=== PATIENT | female | born 1960 | race Asian ===

== ENCOUNTER → 2022-05-09 10:28 | Outpatient (CLI) | payer OTHER, SELFPAY ==
--- NOTE | 2022-05-09 10:31 | DI.MRI.S_ITS ---
PROCEDURE: MR LOWER LEG LT WO CON COMPARISON: None. INDICATIONS: STRAIN OF LEFT CALF MUSCLE Technique: Multiplanar and multisequence MR images of left lower leg were obtained without IV contrast infusion. FINDINGS: Bones and joints: No marrow edema. No fracture or dislocation. Bony cortex is intact. No suspicious intraosseous lesion. Soft tissues: Trace amount of left knee joint effusion is noted. There is no gross intra-articular loose bodies. There is no discrete soft tissue mass or fluid collection. No lower leg muscle signal abnormality is seen. No evidence of muscle or tendon rupture. No intramuscular mass or fluid collection. IMPRESSION: 1. No lower leg muscle signal abnormality. No abnormal fluid collection. 2. No marrow edema. No fracture or dislocation. No MR evidence of tibial stress injuries. Dictated by: Jp Westfall M.D. on 05/11/2022 at 9:50 Approved by: Jp Westfall M.D. on 05/11/2022 at 10:01
== END ==
PROVIDERS: Referring Provider Orthopaedic Surgery Foot and Ankle Surgery; Visit Provider Orthopaedic Surgery Foot and Ankle Surgery
DX: S86.812A Strain of other muscle(s) and tendon(s) at lower leg level, left leg, initial encounter (principal); X58.XXXA Exposure to other specified factors, initial encounter
CPT/HCPCS: 73718

== ENCOUNTER 2023-07-15 19:37 | Emergency (ER) | payer OTHER, SELFPAY ==
[2023-07-15 19:52] VITALS: BP 138/68; PULSE 88; RESP 18; TEMP 36.1; O2SAT 99
--- NOTE | 2023-07-15 20:01 | DI.US.S_ITS ---
PROCEDURE: US PERIPH VENOUS LOW EXTREM LT INDICATIONS: cold painfull exremity after stepping wrong on a step TECHNIQUE: Real-time imaging, as well as color and pulse Doppler interrogation, were performed of the lower extremity deep veins from the inguinal ligament to the popliteal fossa, with documentation of the visualized calf veins. COMPARISON: None. FINDINGS: The common femoral, femoral, popliteal, and the visualized calf veins are normally compressible, and free of intraluminal thrombus. Color and pulse Doppler demonstrate normal phasic intraluminal flow. There is normal augmentation response to distal compression maneuver. IMPRESSION: No findings of lower extremity deep venous thrombosis. Approved by: Bernabe Lei M.D. on 07/15/2023 at 20:50
[2023-07-15 22:00] VITALS: PULSE 80
[2023-07-15 22:01] VITALS: PULSE 80
[2023-07-15 22:03] VITALS: PULSE 81
[2023-07-15 22:04] VITALS: PULSE 81
--- NOTE | 2023-07-15 22:04 | ED.LOWEXIN ---
HPI - Extremity Injury (Lower) General Chief Complaint: Extremity Injury, Lower Stated Complaint: left leg pain Time Seen by Provider: 07/15/23 21:59 Source: patient Mode of arrival: Ambulatory History of Present Illness HPI Narrative: 62-year-old female presents for calf pain. Patient states that she was taking out the trash and stepped backward. She felt a ?snap? and pain in her calf. Her palpated her lower extremity and reported that the limb felt cooler than the right lower extremity. They called the nursing line who referred them to the emergency department. Patient reports pain at the back of her left calf, is able to ambulate without difficulty. Denies numbness, weakness other complaints. Review of Systems Review of Systems Narrative: Negative except as noted above Patient History Social History Smoking Status: Never smoker Smoking Status: Never smoker alcohol intake frequency: holidays/special occasions only Substance Use Type: does not use Exam Initial Vital Signs Initial Vital Signs: Vital Signs Temperature 97 F L 07/15/23 19:52 Pulse Rate 88 07/15/23 19:52 Respiratory Rate 18 07/15/23 19:52 Blood Pressure 138/68 07/15/23 19:52 Pulse Oximetry 99 07/15/23 19:52 Oxygen Delivery Method Room Air 07/15/23 19:52 Const: Awake, alert, no acute distress, nontoxic appearing Cardiac: regular rate, regular rhythm RESP: unlabored, clear bilaterally, no wheezing GI: Atraumatic, soft, nontender, nondistended, no rebound, no guarding MSK: Atraumatic, tenderness to posterior L calf, full ROM of ankle, palpable TP and DP pulses bilaterally Skin: Warm, Dry, intact, no rashes, no temperature differential Neuro: AO x3, CN II-XII grossly intact, moves all extremities Psych: affect normal, mood normal, not suicidal, not homicidal Course Course Course Narrative: Well-appearing patient with calf pain after stepping in correctly, reported temperature differential in the left leg, however on exam patient's legs are equal in temperature, has palpable pulses bilaterally. Patient has mild tenderness to the posterior calf without findings concerning for Achilles rupture or other musculoskeletal injury. Patient is ambulatory without difficulty. Ultrasound is negative for DVT or other acute pathology. Patient counseled to take Tylenol and Motrin as needed for pain and she may apply heating or ice packs as needed for comfort. If she is unable to bear weight or her pain significantly worsens she was advised to come back to the emergency department for repeat evaluation. Orders Ordered: ED Orders 07/15/23 20:01 US periph venous low extrem lt Stat Vital Signs Vital signs: Vital Signs - 8 hr 07/15/23 22:38 Temperature 98.2 F Pulse Rate 82 Respiratory Rate 18 Blood Pressure 149/71 H Pulse Oximetry 98 Oxygen Delivery Method Room Air MDM - Extremity Injury (Lower) Differential Diagnosis Differential diagnosis: Likely ankle sprain and strain and other (calf strain, achilles rupture) Discharge Plan Departure Patient Disposition: Home Clinical Impression: Strain of calf muscle Instructions: DI for Calf Muscle Strain Referrals: ProviderJohana [Primary Care Provider] - Stand Alone Forms: Patient Portal/API
[2023-07-15 22:38] VITALS: BP 149/71; PULSE 82; RESP 18; TEMP 36.8; O2SAT 98
== END 2023-07-15 22:38 | disposition home or self-care (01) ==
PROVIDERS: Emergency Provider Emergency Medicine
DX: S86.812A Strain of other muscle(s) and tendon(s) at lower leg level, left leg, initial encounter (principal); X50.0XXA Overexertion from strenuous movement or load, initial encounter; Y93.89 Activity, other specified
CPT/HCPCS: 93971; 99281; 99283